=== PATIENT | male | born 1995 ===

== ENCOUNTER → 2016-05-30 | Outpatient (REF) | LOC: COL.EMP 15:51 | DX: Z02.1 Encounter for pre-employment examination (principal) ==

== ENCOUNTER → 2016-11-25 | Outpatient (REF) | LOC: WSOH 11:00 | DX: Z02.89 Encounter for other administrative examinations (principal) ==

== ENCOUNTER → 2017-01-27 | Outpatient (REF) | LOC: WSOH 17:00 | DX: Z02.89 Encounter for other administrative examinations (principal) ==